=== PATIENT | male | born 1950 | race Two or more races ===

== ENCOUNTER 2017-09-30 12:38 | Outpatient (CLI) | payer MEDICARE, MEDICAID | END 2017-09-30 23:59 | disposition home or self-care (01) | LOC: WOU 12:38 | PROVIDERS: ATTEND Podiatrist Foot & Ankle Surgery | DX: E11.621 Type 2 diabetes mellitus with foot ulcer (principal); L97.513 Non-pressure chronic ulcer of other part of right foot with necrosis of muscle; L03.115 Cellulitis of right lower limb; Z79.84 Long term (current) use of oral hypoglycemic drugs; E11.40 Type 2 diabetes mellitus with diabetic neuropathy, unspecified; B35.1 Tinea unguium; R60.0 Localized edema | CPT/HCPCS: 11043; A6402 ×2 ==

== ENCOUNTER 2017-10-07 08:40 | Outpatient (CLI) | payer MEDICARE, MEDICAID | END 2017-10-07 23:59 | disposition home or self-care (01) | LOC: WOU 08:40 | PROVIDERS: ATTEND Podiatrist Foot & Ankle Surgery | DX: E11.621 Type 2 diabetes mellitus with foot ulcer (principal); L97.513 Non-pressure chronic ulcer of other part of right foot with necrosis of muscle; L03.115 Cellulitis of right lower limb; E11.42 Type 2 diabetes mellitus with diabetic polyneuropathy; R60.0 Localized edema; Z79.84 Long term (current) use of oral hypoglycemic drugs | CPT/HCPCS: 11043; A6402 ==

== ENCOUNTER 2017-10-14 08:30 | Outpatient (CLI) | payer MEDICARE, MEDICAID | END 2017-10-14 23:59 | disposition home or self-care (01) | LOC: WOU 08:30 | PROVIDERS: ATTEND Podiatrist Foot & Ankle Surgery | DX: E11.621 Type 2 diabetes mellitus with foot ulcer (principal); L97.513 Non-pressure chronic ulcer of other part of right foot with necrosis of muscle; E11.65 Type 2 diabetes mellitus with hyperglycemia; B35.3 Tinea pedis; Z79.84 Long term (current) use of oral hypoglycemic drugs | CPT/HCPCS: 11043; 87070-TC; A6402 ==

== ENCOUNTER 2017-10-21 09:00 | Outpatient (CLI) | payer MEDICARE, MEDICAID | END 2017-10-21 23:59 | disposition home or self-care (01) | LOC: WOU 09:00 | PROVIDERS: ATTEND Podiatrist Foot & Ankle Surgery | DX: E11.621 Type 2 diabetes mellitus with foot ulcer (principal); E11.42 Type 2 diabetes mellitus with diabetic polyneuropathy; L97.513 Non-pressure chronic ulcer of other part of right foot with necrosis of muscle; Z79.84 Long term (current) use of oral hypoglycemic drugs | CPT/HCPCS: 11043; A6402 ==

== ENCOUNTER 2017-10-28 08:15 | Outpatient (CLI) | payer MEDICARE, MEDICAID | END 2017-10-28 23:59 | disposition home or self-care (01) | LOC: WOU 08:15 | PROVIDERS: ATTEND Podiatrist Foot & Ankle Surgery | DX: E11.621 Type 2 diabetes mellitus with foot ulcer (principal); E11.42 Type 2 diabetes mellitus with diabetic polyneuropathy; L97.513 Non-pressure chronic ulcer of other part of right foot with necrosis of muscle; R60.0 Localized edema; Z79.84 Long term (current) use of oral hypoglycemic drugs | CPT/HCPCS: 11043; A6402 ==

== ENCOUNTER 2017-10-29 13:29 | Outpatient (CLI) | payer MEDICARE, MEDICAID ==
[2017-10-29 15:42] LABS: BASOPHILS % (AUTO) 0.4 % (0.0-2.0); EOSINOPHILS # (AUTO) 0.2 /CMM (0.0-0.7); EOSINOPHILS % (AUTO) 2.4 % (0.0-6.0); HEMATOCRIT 40 % (39-51); HEMOGLOBIN 13.4 g/dL (13.5-17.5); LYMPHOCYTES # (AUTO) 2.8 /CMM (0.8-4.8); LYMPHOCYTES % (AUTO) 37.6 % (20.0-44.0); MEAN CORPUSCULAR HEMOGLOBIN 30 PG (26.0-33.0); MEAN CORPUSCULAR HGB CONC 33 g/dl (31.0-36.0); MEAN CORPUSCULAR VOLUME 92 fL (80-96); MONOCYTES # (AUTO) 0.6 /CMM (0.1-1.30); MONOCYTES % (AUTO) 7.7 % (2.0-12.0); NEUTROPHILS # (AUTO) 3.8 /CMM (1.8-8.9); NEUTROPHILS % (AUTO) 51.9 % (43.0-81.0); PLATELET COUNT (AUTO) 256 /CMM (150-450); RDW COEFFICIENT OF VARIATION 12.4 (11.5-15.0); WHITE BLOOD COUNT (AUTO) 7.4 K/uL (4.3-11.0)
[2017-10-29 16:02] LABS: ALBUMIN 3.9 g/dL (3.4-5.0); BILIRUBIN,TOTAL 0.3 mg/dL (0.2-1.0); CALCIUM, SERUM 9.3 mg/dL (8.5-10.1); CREATININE 0.9 mg/dL (0.6-1.3); TOTAL PROTEIN, SERUM 7.4 g/dL (6.4-8.2)
[2017-10-29 16:11] LABS: INR 1.02 (0.87-1.13); PROTHROMBIN TIME 10.6 SECS (9.5-12.7)
== END 2017-10-29 23:59 | disposition home or self-care (01) ==
LOC: LAB 13:29
PROVIDERS: ATTEND Podiatrist Foot & Ankle Surgery
DX: R91.8 Other nonspecific abnormal finding of lung field (principal); M47.894 Other spondylosis, thoracic region; T14.8XXD Other injury of unspecified body region, subsequent encounter; X58.XXXD Exposure to other specified factors, subsequent encounter; R79.89 Other specified abnormal findings of blood chemistry; R79.1 Abnormal coagulation profile
CPT/HCPCS: 36415; 71010-TC; 80053-TC; 85025-TC; 85610-TC

== ENCOUNTER 2017-10-30 12:55 | Outpatient (CLI) | payer MEDICARE, MEDICAID | END 2017-10-30 23:59 | disposition home or self-care (01) | LOC: WOU 12:55 | PROVIDERS: ATTEND Nurse Practitioner Acute Care | DX: Z01.818 Encounter for other preprocedural examination (principal); E11.621 Type 2 diabetes mellitus with foot ulcer; L97.519 Non-pressure chronic ulcer of other part of right foot with unspecified severity; R91.1 Solitary pulmonary nodule | CPT/HCPCS: G0463 ==

== ENCOUNTER 2017-10-30 13:22 | Outpatient (CLI) | payer MEDICARE, MEDICAID | END 2017-10-30 23:59 | disposition home or self-care (01) | LOC: CT 13:22 | PROVIDERS: ATTEND Nurse Practitioner Acute Care | DX: S22.41XA Multiple fractures of ribs, right side, initial encounter for closed fracture (principal); R91.1 Solitary pulmonary nodule; X58.XXXA Exposure to other specified factors, initial encounter; Y93.89 Activity, other specified; Y92.89 Other specified places as the place of occurrence of the external cause; Y99.8 Other external cause status | CPT/HCPCS: 71250-TC ==

== ENCOUNTER 2017-11-04 05:48 | Day surgery (SDC) | payer MEDICARE, MEDICAID ==
[2017-11-04] MEDS ORDERED: ANESTHESIA TRAY IN PYXIS 1 EA TRAY MC ONE (06:57)
[2017-11-04] MEDS ORDERED: BUPIVACAINE 0.5 % PF 150 MG/30 ML VIAL ONE (07:06)
[2017-11-04] MEDS ORDERED: LIDOCAINE 0.5% HCL 50 ML VIAL ONE (08:05)
[2017-11-04] MEDS ORDERED: FENTANYL PF 100MCG/2ML AMPUL ONE (08:07)
[2017-11-04] MEDS ORDERED: MIDAZOLAM HCL 2 MG/2ML VIAL ONE (08:07)
[2017-11-04] MEDS ORDERED: HYDROCODONE/APAP 5/325MG 1 EACH TABLET PO ONE (13:30)
== END 2017-11-04 09:40 | disposition home or self-care (01) ==
LOC: DS 05:48
PROVIDERS: ATTEND Podiatrist Foot & Ankle Surgery
DX: E11.621 Type 2 diabetes mellitus with foot ulcer (principal); E11.40 Type 2 diabetes mellitus with diabetic neuropathy, unspecified; L97.518 Non-pressure chronic ulcer of other part of right foot with other specified severity; B37.89 Other sites of candidiasis
CPT/HCPCS: 11042; 82962 ×2; 87070; 88305 ×2; A6402; J2250; J2405; J3490 ×2; J3010

== ENCOUNTER 2017-11-12 08:00 | Outpatient (CLI) | payer MEDICARE, MEDICAID | END 2017-11-12 23:59 | disposition home health service (06) | LOC: WOU 08:00 | PROVIDERS: ATTEND Podiatrist Foot & Ankle Surgery | DX: Z48.817 Encounter for surgical aftercare following surgery on the skin and subcutaneous tissue (principal); E11.42 Type 2 diabetes mellitus with diabetic polyneuropathy; B35.1 Tinea unguium; Z79.84 Long term (current) use of oral hypoglycemic drugs | CPT/HCPCS: A6402; G0463 ==

== ENCOUNTER 2017-11-26 08:05 | Outpatient (CLI) | payer MEDICARE, MEDICAID | END 2017-11-26 23:59 | disposition home health service (06) | LOC: WOU 08:05 | PROVIDERS: ATTEND Podiatrist Foot & Ankle Surgery | DX: E11.42 Type 2 diabetes mellitus with diabetic polyneuropathy (principal); Z86.31 Personal history of diabetic foot ulcer; Z79.84 Long term (current) use of oral hypoglycemic drugs | CPT/HCPCS: A6402; G0463 ==

== ENCOUNTER 2017-12-23 08:00 | Outpatient (CLI) | payer MEDICARE, MEDICAID | END 2017-12-23 23:59 | disposition home or self-care (01) | LOC: WOU 08:00 | PROVIDERS: ATTEND Podiatrist Foot & Ankle Surgery | DX: E11.42 Type 2 diabetes mellitus with diabetic polyneuropathy (principal); M35.1 Other overlap syndromes; Z86.31 Personal history of diabetic foot ulcer; L85.3 Xerosis cutis; M20.40 Other hammer toe(s) (acquired), unspecified foot | CPT/HCPCS: G0463 ==

== ENCOUNTER 2018-02-09 10:35 | Outpatient (CLI) | payer MEDICARE, MEDICAID ==
[2018-02-09 11:40] LABS: BASOPHILS % (AUTO) 0.4 % (0.0-2.0); EOSINOPHILS # (AUTO) 0.1 /CMM (0.0-0.7); EOSINOPHILS % (AUTO) 1.6 % (0.0-6.0); HEMATOCRIT 42 % (39-51); HEMOGLOBIN 14.1 g/dL (13.5-17.5); LYMPHOCYTES # (AUTO) 2.3 /CMM (0.8-4.8); LYMPHOCYTES % (AUTO) 29.7 % (20.0-44.0); MEAN CORPUSCULAR HEMOGLOBIN 31 PG (26.0-33.0); MEAN CORPUSCULAR HGB CONC 34 g/dl (31.0-36.0); MEAN CORPUSCULAR VOLUME 92 fL (80-96); MONOCYTES # (AUTO) 0.5 /CMM (0.1-1.30); MONOCYTES % (AUTO) 6.1 % (2.0-12.0); NEUTROPHILS # (AUTO) 4.9 /CMM (1.8-8.9); NEUTROPHILS % (AUTO) 62.2 % (43.0-81.0); PLATELET COUNT (AUTO) 305 /CMM (150-450); RDW COEFFICIENT OF VARIATION 12.9 (11.5-15.0); RED BLOOD CELL COUNT(AUTO) 4.56 MIL/uL (4.5-6.0); WHITE BLOOD COUNT (AUTO) 7.8 K/uL (4.3-11.0)
[2018-02-09 11:55] LABS: ALBUMIN 3.9 g/dL (3.4-5.0); BILIRUBIN,DIRECT 0.1 mg/dL (0.0-0.2); BILIRUBIN,TOTAL 0.6 mg/dL (0.2-1.0); TOTAL PROTEIN, SERUM 7.8 g/dL (6.4-8.2)
== END 2018-02-09 23:59 | disposition home or self-care (01) ==
LOC: LAB 10:35
PROVIDERS: ATTEND Podiatrist Foot & Ankle Surgery
DX: B35.1 Tinea unguium (principal)
CPT/HCPCS: 36415; 80076-TC; 85025-TC

== ENCOUNTER 2018-03-03 09:15 | Outpatient (CLI) | payer MEDICARE, MEDICAID, BC | END 2018-03-03 23:59 | disposition home or self-care (01) | LOC: WOU 09:15 | PROVIDERS: ATTEND Podiatrist Foot & Ankle Surgery | DX: E11.621 Type 2 diabetes mellitus with foot ulcer (principal); L97.829 Non-pressure chronic ulcer of other part of left lower leg with unspecified severity; L97.819 Non-pressure chronic ulcer of other part of right lower leg with unspecified severity; E11.40 Type 2 diabetes mellitus with diabetic neuropathy, unspecified; Z79.84 Long term (current) use of oral hypoglycemic drugs; B35.1 Tinea unguium | CPT/HCPCS: A6402; G0463 ==